=== PATIENT | female | born 1965 | race Two or more races ===

== ENCOUNTER 2024-01-19 18:49 | Emergency (ER) | payer MEDICAID, OTHER ==
[~2024-01-19] VITALS: Ht 152.4 cm; Wt 78.1 kg
[2024-01-19 19:22] LABS: Basophils # (auto) 0.1 10 ^3/uL (0-0.2); Basophils % (auto) 0.9 % (0.0-2.0); Eosinophils # (auto) 0.2 10 ^3/uL (0-0.8); Eosinophils % (auto) 2.5 % (0.0-7.0); Hematocrit 43.3 % (36.0-46.0); Hemoglobin 14.4 g/dL (12.2-16.2); Lymphocytes # (auto) 2.9 10 ^3/uL (0.4-5.4); Lymphocytes % (auto) 38.6 % (10.0-50.0); Mean Corpuscular Hemoglobin 29.5 pg (28.0-32.0); Mean Corpuscular Hgb Conc. 33.3 g/dL (32.0-36.0); Mean Corpuscular Volume 88.5 fL (80.0-100.0); Monocytes # (auto) 0.5 10 ^3/uL (0-1.3); Monocytes % (auto) 6.5 % (0.0-12.0); Neutrophils # (auto) 3.9 10 ^3/uL (1.6-8.6); Neutrophils % (auto) 51.5 % (37.0-80.0); Nucleated Red Blood Cells % 0.1 %; Red Cell Distribution Width 12.9 % (11.8-14.3); White Blood Cell 7.6 10^3/uL (4.4-10.8)
[2024-01-19 19:31] LABS: Chloride 106 mmol/L (98-107); Potassium 4.3 mmol/L (3.5-5.1); Sodium 141 mmol/L (136-145)
[2024-01-19 19:32] LABS: Anion Gap 6 (5-15); Carbon Dioxide 29 mmol/L (20-30)
[2024-01-19 19:33] LABS: Calcium 9.5 mg/dL (8.5-10.1)
[2024-01-19 19:38] LABS: BUN/Creatinine Ratio 22.7 (10.0-20.0); Blood Urea Nitrogen 20 mg/dL (9-23); Glucose 199 mg/dL (74-106)
[2024-01-19 20:15] VITALS: TEMP 98
[2024-01-19 20:30] VITALS: PULSE 82; RESP 20; O2SAT 96
[2024-01-19] MEDS: NITROGLYCERIN 0.4MG/HR TOPICAL PATCH TD ONE (20:35)
[2024-01-19] MEDS: ACETAMINOPHEN 325 MG TAB PO ONE (21:29)
[2024-01-19 22:35] LABS: Urine Bacteria NONE SEEN /hpf (None Seen); Urine Blood Negative /uL (Negative); Urine Clarity Clear (Clear); Urine Color Colorless (Yellow); Urine Protein, UAD Negative (Negative); Urine Specific Gravity 1.016 (1.001-1.035); Urine Urobilinogen Normal (Negative); Urine WBC 2 /hpf (0 - 5); Urine pH 5.5 (5.0-8.0)
[2024-01-20 00:06] VITALS: BP 16/56; PULSE 77; RESP 22; O2SAT 96
== END 2024-01-20 00:22 | disposition home or self-care (01) ==
LOC: EDBD 18:49 → EDSEX 18:49 → ER 18:49
DX: R07.89 Other chest pain (principal); R42 Dizziness and giddiness; I10 Essential (primary) hypertension
CPT/HCPCS: 36415; 71045; 80048; 81001; 83880; 84484; 85025; 93005